=== PATIENT | male | born 1955 | race Two or more races ===

== ENCOUNTER 2020-02-14 14:54 | Outpatient (CLI) | payer OTHER | END 2020-02-14 15:06 | disposition home or self-care (01) | LOC: LAB 14:54 | PROVIDERS: ATTEND Surgery | DX: R97.20 Elevated prostate specific antigen [PSA] (principal) ==

== ENCOUNTER 2020-02-21 07:06 | Outpatient (CLI) | payer OTHER | END 2020-02-21 07:23 | disposition home or self-care (01) | LOC: SONOGRAMA 07:06 | PROVIDERS: ATTEND Surgery | DX: R97.20 Elevated prostate specific antigen [PSA] (principal) ==